=== PATIENT | female | born 1980 | race Caucasian/White ===

== ENCOUNTER → 2017-06-11 | Outpatient (REF) ==
[~2017-06-11] MED LIST: ADVIL 200MG TA200 MG PO; CYMBALTA 60MG60 MG PO; DESOGEN; KLONOPIN 0.5MG0.5 MG PO; TRAZODO50 MG PO; [UNRECOGNIZED DRUG - OTHER]
== END ==
LOC: WSOH 13:08
DX: Z02.89 Encounter for other administrative examinations (principal)

== ENCOUNTER → 2020-09-12 | Outpatient (CLI) | payer BC | LOC: MC.RAD 10:04 | DX: Z12.31 Encounter for screening mammogram for malignant neoplasm of breast (principal) ==

== ENCOUNTER → 2023-12-10 | Outpatient (CLI) | payer OTHER | LOC: MC.RAD 12:39 | DX: N63.20 Unspecified lump in the left breast, unspecified quadrant (principal) ==